=== PATIENT | male | born 1980 | race American Indian/Alaskan Native ===

== ENCOUNTER 2016-10-14 23:54 | Emergency (ER) | payer MEDICAID ==
[~2016-10-14] VITALS: Ht 175.3 cm; Wt 69.0 kg
[2016-10-15] MEDS ORDERED: ONDANSETRON ODT 4 MG PO ONE
[2016-10-15] MEDS ORDERED: ONDANSETRON ODT 4 MG ONE (00:10)
[2016-10-15 04:16] VITALS: BP 143/101
== END 2016-10-15 04:29 ==
LOC: ED 23:59
DX: F10.120 Alcohol abuse with intoxication, uncomplicated (principal); F19.10 Other psychoactive substance abuse, uncomplicated
CPT/HCPCS: 70450; 99285; Q0162; 99284

== ENCOUNTER 2017-07-30 12:25 | Inpatient (IN) | payer MEDICAID ==
[~2017-07-30] VITALS: Ht 175.3 cm; Wt 81.4 kg
[2017-07-30 13:45] LABS: MEAN CORPUSCULAR HGB CONC 32.1 g/dL (33.2-36.2); MEAN CORPUSCULAR VOLUME 80.9 fL (81-97); MEAN PLATELET VOLUME 7.1 fL (7.4-10.4); PLATELET COUNT 324 x10^3/uL (130-400); RED BLOOD COUNT 3.77 x10^6/uL (4.38-5.82); RED CELL DISTRIBUTION WIDTH 23.4 % (9.4-14.8)
[2017-07-30 13:51] LABS: INTERNATIONAL NORMALIZED RATIO 1.01 (0.93-1.1); PROTHROMBIN TIME 10.4 Seconds (9.6-11.5)
[2017-07-30 13:56] LABS: ALANINE AMINOTRANSFERASE 40 U/L (12-78); ALBUMIN 2.2 g/dL (3.4-5.0); ANION GAP 10 mmol/L (5-15); CALCIUM 7.6 mg/dL (8.5-10.1); CHLORIDE 103 mmol/L (98-107); CREATININE 0.78 mg/dL (0.7-1.3)
[2017-07-30 13:59] LABS: ALKALINE PHOSPHATASE 143 U/L (45-117); BILIRUBIN,TOTAL 0.2 mg/dL (0.2-1.0)
[2017-07-30 14:01] LABS: BASOPHILS % (AUTO) 1 % (0-1); EOSINOPHILS # (AUTO) 0.02 x10^3/uL (0-0.4); EOSINOPHILS % (AUTO) 0 % (1-7); LYMPHOCYTES # (AUTO) 1.12 x10^3/uL (1-3.4); LYMPHOCYTES % (AUTO) 11 % (22-44); MD MORPH REVIEW ONLY; MONOCYTES % (AUTO) 10 % (2-9); NEUTROPHILS # (AUTO) 7.59 x10^3/uL (1.8-6.8); NEUTROPHILS % (AUTO) 77 % (42-75)
[2017-07-30 14:02] LABS: <PLATELET ESTIMATE> ADEQUATE; <PLT MORPHOLOGY> NORMAL PLT MORPH; ANISOCYTOSIS 1+
[2017-07-30] MEDS: SODIUM CHLORIDE 0.9% 1,000 ML IV SCH ×2 (14:13→23:00)
[2017-07-30] MEDS ORDERED: AMPICILLIN/SULBACTAM 3 GM in SODIUM CHLORIDE 0.9% 100 ML IV ONE (15:30)
[2017-07-30] MEDS ORDERED: VANCOMYCIN PER PHARMACY MC ONE (15:30)
[2017-07-30] MEDS ORDERED: PHARMACOKINETIC CONSULTATION MC ONE ×2 (15:30→18:30)
[2017-07-30] MEDS ORDERED: VANCOMYCIN 1,600 MG in SODIUM CHLORIDE 0.9% 250 ML IV ONE (16:00)
[2017-07-30] MEDS ORDERED: LORazepam 1MG TABLET PO PRN ×3 (16:30)
[2017-07-30] MEDS ORDERED: VANCOMYCIN PER PHARMACY MC PRN (16:30)
[2017-07-30] MEDS ORDERED: LORazepam 0.5MG TABLET PO PRN (16:30)
[2017-07-30] MEDS ORDERED: ACETAMINOPHEN 325 MG TABLET PO PRN (16:30)
[2017-07-30] MEDS ORDERED: ONDANSETRON ODT 4 MG PO PRN (16:30)
[2017-07-30] MEDS ORDERED: METOCLOPRAMIDE 5 MG/ML, 2ML IVPush PRN (16:30)
[2017-07-30] MEDS ORDERED: ONDANSETRON 2MG/ML, 2ML IVPush PRN (16:30)
[2017-07-30] MEDS ORDERED: LORazepam 2 MG/ML, 1ML IV PRN ×5 (16:30)
[2017-07-30] MEDS ORDERED: hydrALAzine 20 MG/ML, 1ML IVPush PRN (16:30)
[2017-07-30] MEDS ORDERED: LABETALOL 5MG/ML, 20ML IVPush PRN (16:30)
[2017-07-30 16:41] LABS: % IRON SATURATION 7 % (20-55); IRON LEVEL 24 mcg/dL (65-175); TOTAL IRON BINDING CAPACITY 369 mcg/dL (250-450)
[2017-07-30 17:32] VITALS: BP 139/87
[2017-07-30] MEDS: PIPERACILLIN/TAZO/PMX 4.5GM 100 ML IV SCH (18:04)
[2017-07-30] MEDS ORDERED: PHARMACOKINETIC MONITORING MC PRN (18:30)
[2017-07-30] MEDS: ENOXAPARIN 30 MG/0.3 ML SQ SCH (18:38)
[2017-07-30] MEDS: POTASSIUM CHLORIDE 20 MEQ, MAGNESIUM SULFATE 2 GM, THIAMINE 100 MG, MVI ADULT 10 ML, FO... IV SCH (18:39)
[2017-07-30 19:56] VITALS: BP 132/74
[2017-07-31 00:38] VITALS: BP 139/55
[2017-07-31] MEDS: PIPERACILLIN/TAZO/PMX 4.5GM 100 ML IV SCH ×3 (00:41→18:02)
[2017-07-31] MEDS: SODIUM CHLORIDE 0.9% 1,000 ML IV SCH ×3 (00:42→09:12)
[2017-07-31] MEDS: POTASSIUM CHLORIDE 20 MEQ, MAGNESIUM SULFATE 2 GM, THIAMINE 100 MG, MVI ADULT 10 ML, FO... IV SCH (00:43)
[2017-07-31 03:43] LABS: AMPHETAMINE SCREEN, URINE Negative (Negative); BARBITURATE SCREEN, URINE Negative (Negative); BENZODIAZEPINE SCREEN, URINE Negative (Negative); CANNABINOID SCREEN, URINE Negative (Negative); COCAINE SCREEN, URINE Negative (Negative); METHADONE SCREEN, URINE Negative (Negative); OPIATE SCREEN, URINE Negative (Negative)
[2017-07-31] MEDS: VANCOMYCIN 1,600 MG in SODIUM CHLORIDE 0.9% 250 ML IV SCH ×2 (04:05→16:06)
[2017-07-31] MEDS: ENOXAPARIN 30 MG/0.3 ML SQ SCH ×2 (05:42→18:02)
[2017-07-31 05:52] LABS: MEAN CORPUSCULAR HEMOGLOBIN 26.4 pg (27.5-34.5); MEAN CORPUSCULAR HGB CONC 32.2 g/dL (33.2-36.2); PLATELET COUNT 274 x10^3/uL (130-400); RED BLOOD COUNT 3.41 x10^6/uL (4.38-5.82); RED CELL DISTRIBUTION WIDTH 23.5 % (9.4-14.8)
[2017-07-31 05:59] LABS: CHLORIDE 109 mmol/L (98-107)
[2017-07-31 06:21] LABS: ALANINE AMINOTRANSFERASE 34 U/L (12-78); ALBUMIN 1.8 g/dL (3.4-5.0); ALKALINE PHOSPHATASE 107 U/L (45-117); ANION GAP 7 mmol/L (5-15); BILIRUBIN,TOTAL 0.6 mg/dL (0.2-1.0); CALCIUM 7.7 mg/dL (8.5-10.1); CREATININE 0.59 mg/dL (0.7-1.3); TOTAL PROTEIN 6.7 g/dL (6.4-8.2)
[2017-07-31 06:36] LABS: BASOPHILS # (AUTO) 0.04 x10^3/uL (0-0.1); BASOPHILS % (AUTO) 1 % (0-1); EOSINOPHILS # (AUTO) 0.06 x10^3/uL (0-0.4); EOSINOPHILS % (AUTO) 1 % (1-7); LYMPHOCYTES # (AUTO) 0.85 x10^3/uL (1-3.4); LYMPHOCYTES % (AUTO) 17 % (22-44); MD SCAN; MONOCYTES # (AUTO) 0.54 x10^3/uL (0.2-0.8); MONOCYTES % (AUTO) 11 % (2-9); NEUTROPHILS # (AUTO) 3.56 x10^3/uL (1.8-6.8); NEUTROPHILS % (AUTO) 70 % (42-75)
[2017-07-31 07:26] VITALS: BP 134/85
[2017-07-31 13:00] VITALS: BP 148/92
[2017-07-31] MEDS: LACTATED RINGERS 1,000 ML IV SCH (13:58)
[2017-07-31 19:10] VITALS: BP 149/87
[2017-07-31 22:37] LABS: CLOSTRIDIUM DIFFICILE ANTIGEN NEGATIVE; CLOSTRIDIUM DIFFICILE TOXIN NEGATIVE (Negative)
[2017-08-01] MEDS: PIPERACILLIN/TAZO/PMX 4.5GM 100 ML IV SCH ×3 (00:48→17:08)
[2017-08-01] MEDS: LACTATED RINGERS 1,000 ML IV SCH ×3 (00:51→21:41)
[2017-08-01 01:35] VITALS: BP 140/85
[2017-08-01] MEDS: VANCOMYCIN 1,600 MG in SODIUM CHLORIDE 0.9% 250 ML IV SCH (04:11)
[2017-08-01] MEDS: ENOXAPARIN 30 MG/0.3 ML SQ SCH ×2 (05:55→17:09)
[2017-08-01 07:25] VITALS: BP 158/91
[2017-08-01 10:44] LABS: MEAN CORPUSCULAR HEMOGLOBIN 27.1 pg (27.5-34.5); MEAN CORPUSCULAR HGB CONC 32.7 g/dL (33.2-36.2); MEAN CORPUSCULAR VOLUME 82.9 fL (81-97); MEAN PLATELET VOLUME 7.2 fL (7.4-10.4); PLATELET COUNT 340 x10^3/uL (130-400); RED BLOOD COUNT 3.24 x10^6/uL (4.38-5.82); RED CELL DISTRIBUTION WIDTH 23.9 % (9.4-14.8)
[2017-08-01 10:54] LABS: ALANINE AMINOTRANSFERASE 48 U/L (12-78); ALBUMIN 1.8 g/dL (3.4-5.0); ANION GAP 6 mmol/L (5-15); CALCIUM 7.6 mg/dL (8.5-10.1); CHLORIDE 110 mmol/L (98-107); CREATININE 0.68 mg/dL (0.7-1.3)
[2017-08-01 10:56] LABS: ALKALINE PHOSPHATASE 114 U/L (45-117); BILIRUBIN,TOTAL 0.5 mg/dL (0.2-1.0)
[2017-08-01 11:05] LABS: BASOPHILS # (AUTO) 0.08 x10^3/uL (0-0.1); BASOPHILS % (AUTO) 1 % (0-1); EOSINOPHILS # (AUTO) 0.09 x10^3/uL (0-0.4); EOSINOPHILS % (AUTO) 2 % (1-7); LYMPHOCYTES # (AUTO) 0.93 x10^3/uL (1-3.4); LYMPHOCYTES % (AUTO) 15 % (22-44); MD SCAN; MONOCYTES % (AUTO) 10 % (2-9); NEUTROPHILS # (AUTO) 4.33 x10^3/uL (1.8-6.8); NEUTROPHILS % (AUTO) 72 % (42-75)
[2017-08-01 13:19] VITALS: BP 162/98
[2017-08-01 15:52] VITALS: BP 163/93
[2017-08-01 19:06] VITALS: BP 147/87
[2017-08-02] MEDS: PIPERACILLIN/TAZO/PMX 4.5GM 100 ML IV SCH ×3 (00:35→16:20)
[2017-08-02] MEDS ORDERED: DIPHENHYDRAMINE 25 MG CAPSULE PO ONE (01:00)
[2017-08-02 02:41] VITALS: BP 154/96
[2017-08-02] MEDS: VANCOMYCIN 1,600 MG in SODIUM CHLORIDE 0.9% 250 ML IV SCH ×2 (04:03→22:00)
[2017-08-02 05:22] LABS: ALBUMIN 1.8 g/dL (3.4-5.0); CHLORIDE 111 mmol/L (98-107)
[2017-08-02 05:26] LABS: MEAN CORPUSCULAR HEMOGLOBIN 27.3 pg (27.5-34.5); MEAN CORPUSCULAR HGB CONC 32.7 g/dL (33.2-36.2); MEAN CORPUSCULAR VOLUME 83.4 fL (81-97); MEAN PLATELET VOLUME 7.4 fL (7.4-10.4); PLATELET COUNT 354 x10^3/uL (130-400); RED BLOOD COUNT 3.27 x10^6/uL (4.38-5.82); RED CELL DISTRIBUTION WIDTH 23.8 % (9.4-14.8)
[2017-08-02 05:31] LABS: ALANINE AMINOTRANSFERASE 52 U/L (12-78); ALKALINE PHOSPHATASE 144 U/L (45-117); ANION GAP 9 mmol/L (5-15); BILIRUBIN,TOTAL 0.4 mg/dL (0.2-1.0); CALCIUM 7.5 mg/dL (8.5-10.1); CREATININE 0.72 mg/dL (0.7-1.3); TOTAL PROTEIN 7.2 g/dL (6.4-8.2)
[2017-08-02 05:59] LABS: BASOPHILS % (AUTO) 2 % (0-1); EOSINOPHILS # (AUTO) 0.09 x10^3/uL (0-0.4); EOSINOPHILS % (AUTO) 2 % (1-7); LYMPHOCYTES % (AUTO) 21 % (22-44); MD SCAN; MONOCYTES # (AUTO) 0.71 x10^3/uL (0.2-0.8); MONOCYTES % (AUTO) 12 % (2-9); NEUTROPHILS # (AUTO) 3.63 x10^3/uL (1.8-6.8); NEUTROPHILS % (AUTO) 63 % (42-75)
[2017-08-02] MEDS: ENOXAPARIN 30 MG/0.3 ML SQ SCH ×2 (06:01→18:13)
[2017-08-02 08:02] VITALS: BP 155/93
[2017-08-02] MEDS: LACTATED RINGERS 1,000 ML IV SCH (08:33)
[2017-08-02 14:01] VITALS: BP 152/89
[2017-08-02 19:39] VITALS: BP 165/98
[2017-08-03] MEDS: PIPERACILLIN/TAZO/PMX 4.5GM 100 ML IV SCH (00:28)
== END 2017-08-03 04:00 | disposition left against medical advice (07) | DRG 603 ==
LOC: ED 14:27 → EDIP 15:22 → 4WST 17:08 → 3NE 08-01 15:12
PROVIDERS: ADMIT Hospitalist; ATTEND Hospitalist
DX: L03.115 Cellulitis of right lower limb (principal); R65.10 Systemic inflammatory response syndrome (SIRS) of non-infectious origin without acute organ dysfunction; E44.1 Mild protein-calorie malnutrition; E83.51 Hypocalcemia; E87.1 Hypo-osmolality and hyponatremia; F10.229 Alcohol dependence with intoxication, unspecified; D50.9 Iron deficiency anemia, unspecified; L03.116 Cellulitis of left lower limb; Z59.0 Homelessness; R73.9 Hyperglycemia, unspecified; Z68.26 Body mass index [BMI] 26.0-26.9, adult
CPT/HCPCS: 36415; 80053; 80202; 80307; 83540; 83550; 83605; 83735; 84100; 85025; 85610; 87040; 87324; 93005; 93970; 96374; 96375; J0295; J1650; J2543; J3370; J3411; J3475; J3480; J7042; J7030; J7050; J7120; Q0163